=== PATIENT | female | born 1945 | race Caucasian/White ===

== ENCOUNTER 2024-11-22 13:05 | Inpatient (IN) | payer MEDICARE, SELFPAY ==
[2024-11-22] VITALS (8 sets, daily range): BP systolic 100–127; BP diastolic 46–77; PULSE 67–83; RESP 16–20; TEMP 36.4–37.2; O2SAT 84–98; BMI 17.6
--- NOTE | ~2024-11-22 | CT_ITS ---
CLINICAL HISTORY: hypoxia CT chest without contrast Comparison: Chest x-ray from 11/22/2024. Findings: Moderate emphysematous changes and mild scarring redemonstrated. Secretions noted in the imaged airways including right mainstem bronchus. Mild opacities including anterior segment of the right upper lobe may reflect mild pneumonitis (image 304 of series 5). No lobar consolidation. No pneumothorax . Trace right pleural fluid. Mild-moderate cardiomegaly. Vascular calcifications include aorta, its branches, and coronary arteries. Nonenlarged mediastinal lymphadenopathy in this noncontrast study. Mild vertebral height losses appear old chronic and accentuated by Schmorl's nodes. Mild rib deformities appear old chronic. Degenerative changes include the imaged shoulders. Cholelithiasis in the severe stool burden are partially imaged in the upper abdomen. Streak artifacts are multifocal. IMPRESSION: 1. Mild ground-glass concerning for pneumonitis, including right upper lobe. Recommend attention on follow-up to ensure resolution. 2. Emphysematous changes of the both lungs. 3. Cholelithiasis. This document has been electronically signed by: Kevin Francisco MD on 11/22/2024 20:11:33
--- NOTE | ~2024-11-22 | XR_ITS ---
EXAMINATION: XR CHEST CLINICAL INFORMATION: shortness of breath COMPARISON: None available. TECHNIQUE: Frontal view of the chest was obtained. FINDINGS: Hyperinflated lungs. Pulmonary reticular pattern. Linear opacities in the lower hemithoraces. No pneumothorax. Blunting of the calcified angles bilaterally. Cardiomediastinal silhouette demonstrates calcified plaque aorta arch. Multilevel thoracic and upper lumbar spondylosis. XR/XR chest 1V IMPRESSION: Concerning acute on chronic airspace disease with questionable pleural thickening versus small pleural effusions. Electronically signed by: Baldemar Hernandez MD 11/22/2024 02:28 PM EST RP
--- NOTE | 2024-11-22 13:08 | ECG_ITS ---
Test Reason : SOB Blood Pressure : */* mmHG Vent. Rate : 79 BPM Atrial Rate : 79 BPM P-R Int : 126 ms QRS Dur : 116 ms QT Int : 394 ms P-R-T Axes : 28 260 19 degrees QTcB Int : 451 ms Normal sinus rhythm Left bundle branch block Abnormal ECG When compared with ECG of No significant changes seen Referred By: Generic ED Physician Electronically Signed By: Yuri Ayon
--- NOTE | 2024-11-22 13:31 | ED.SOB ---
HPI - SOB/Dyspnea General Chief Complaint: Dyspnea Stated Complaint: Diff breathing Time Seen by Provider: 11/22/24 13:46 History of Present Illness ED Provider: Mer[facility] DIXON Narrative: The patient is a 79-year-old female with a history of COPD who has had worsening shortness of breath over the last 3 or 4 days. No fever. She has been producing white sputum. Her daughter has been more and more concerned about her respiratory symptoms and brought her to the emergency room today. At triage her oxygen saturation was 80 the patient is not on home oxygen. The patient has a left [id number] amputation. She denies any swelling of the right lower leg different from her usual. Related Data Home Medications ?Medication ?Instructions ?Recorded ?Confirmed atorvastatin 40 mg tablet 40 mg PO DAILY 11/22/24 11/22/24 quetiapine 50 mg tablet 50 mg PO BEDTIME 11/22/24 Allergies Allergy/AdvReac Type Severity Reaction Status Date / Time No Known Allergies Allergy Verified 11/22/24 13:39 Review of Systems Review of Systems: Yes all other systems are reviewed and are negative [facility] Past Medical History Medical History (Updated 11/22/24 @ 17:15 by Jerry Gross MD) COPD (chronic obstructive pulmonary disease) Social History Social History Smoked in Last 30 Days: No Use of substances other than those prescribed or required for medical reasons: No Advance Directives: Yes Advance Directives Information Provided: No Advance Directives on File: No Physical Exam Vital Signs: Vital Signs: Last Vital Signs Temp 98.0 F 11/22/24 13:31 Pulse 68 11/22/24 15:58 Resp 18 11/22/24 15:58 BP 108/46 L 11/22/24 15:58 Pulse Ox 92 11/22/24 15:58 O2 Del Method Oxymask 11/22/24 15:58 O2 Flow Rate 4 11/22/24 15:58 BMI result Body Mass Index 17.6 Const: Other: The patient is a very petite, frail looking 79-year-old. She weighs 42 kilos. She looks slightly short of breath and was coughing occasionally. HEENT: Other: Face is symmetrical. Mucous membranes moist. Eyes: Other: Pupils are round equal, conjunctivae clear Neck: Other: No JVD Resp: Other: Inspiratory and expiratory wheezes bilaterally with a prolonged expiratory phase. Mild increased work of breathing Cardio: Rate: regular rate Rhythm: regular rhythm Heart sounds: S1 normal heart sound present and S2 normal heart sound present GI: Other: Abdomen is soft and nontender Skin: Other: Skin is dry and unremarkable Neuro: Other: The patient is awake and alert with a normal mental status. Cranial nerves are grossly intact. She moves her extremities appropriately Extrem: Other: The patient has a very proximal left [id number] amputation. The right leg has some mild thickness of the lower leg but the patient says this is baseline. No pitting edema. No tenderness Course Course Course Narrative: This is a Rapid Medical Examination (RME) performed by Rama Adan PA-C in triage. Full HPI, ROS, assessment and treatment plan per primary provider in the Main ED. 79 yo female hx of asthma/ copd (not dependent on home O2), NM (30 yrs ago) here w/ wheezing and SOB x2-3 days. VNA noted crackles to lungs, advise to come to ED. assoc fatigue and cough w/ white sputum, states this is chronic. denies fever, chills, myalgias, chest pain, NV. Plan: labs, trop, ekg, cxr, vbg Medications Administered Discontinued Medications Generic Name Dose Route Start Last Admin Trade Name Freq PRN Reason Stop Dose Admin Albuterol Sulfate 5 mg/ 0 mg 11/22/24 14:05 11/22/24 14:07 Albuterol/Ipratropium 3 ml INHALE 11/22/24 14:06 1 each ONCE ONE Administration Methylprednisolone Sodium Succinate 60 mg 11/22/24 14:27 11/22/24 14:36 Methylprednisolone Sod Succ 125 Mg/2 Ml Vial IVPUSH 11/22/24 14:28 60 mg ONCE ONE Administration Medical Decision Making Medical Decision Making [facility] Narrative: The patient is a 79-year-old woman with a history of COPD who presents with has a worsening shortness of breath, cough, and wheezing. I think she is likely having a COPD exacerbation. She was treated with IV steroids and updrafts. She was also given IV azithromycin. Her chest x-ray shows no acute infiltrate. Other labs are unremarkable. She has an oxygen requirement today. She required 4 L nasal cannula for an oxygen saturation of 90%. She is not normally on oxygen. She will be admitted further care. Lab Data 11/22/24 14:11 11/22/24 14:11 Labs: Lab Results 11/22/24 11/22/24 Range/Units 14:10 14:11 WBC 4.8 (4.8-10.8) X10*3/uL RBC 4.38 (4.20-5.50) X10*6/uL Hgb 13.9 (12.0-16.0) g/dl Hct 43.1 (37.0-47.0) % MCV 98.4 H (80.0-98.0) fL MCH 31.7 (27.0-33.0) pg MCHC 32.3 (31.0-35.0) g/dl RDW 14.1 (11.0-16.0) % Plt Count 203 (160-400) X10*3/uL MPV 10.5 (9.4-12.3) fL Immature Gran % (Auto) 0.4 (0.0-0.4) % Neut % (Auto) 74.5 H (45-73) % Lymph % (Auto) 11.1 L (20-40) % [place] % (Auto) 10.5 (2-11) % Eos % (Auto) 2.7 (0-4) % Baso % (Auto) 0.8 (0-2) % Lymph # (Auto) 0.5 L (1.2-4.9) X10*3/uL [place] # (Auto) 0.5 (0.1-1.2) X10*3/uL Eos # (Auto) 0.1 (0.0-0.4) X10*3/uL Baso # (Auto) 0.0 (0.0-0.2) X10*3/uL Abs Immat Gran (auto) 0.02 (0.00-0.03) X10*3/uL Absolute Neuts (auto) 3.5 (2.0-8.3) x10*3/uL Absolute Nucleated RBC 0.000 (0.0-0.012) X10*3/uL Nucleated RBC % (auto) 0.0 (0.0-0.2) /100WBC VBG pH 7.39 (7.32-7.43) VBG pCO2 53 mmHg VBG pO2 33 mmHg VBG HCO3 33 H (22-26) mmol/L VBG O2 Saturation 45.0 % VBG Base Excess 6.7 mmol/L Sodium 143 (135-145) mmol/L Potassium 3.9 (3.3-5.1) mmol/L Chloride 103 (96-108) mmol/L Carbon Dioxide 29 (22-29) mmol/L Anion Gap 15 (12-20) BUN 18 H (9-16) mg/dL Creatinine 0.72 (0.5-1.4) mg/dL Estim Creat Clear Calc 43.5 Estimated GFR > 60 Random Glucose 69 (60-115) mg/dL Calcium 8.7 (8.4-10.2) mg/dL Magnesium 2.0 (1.6-2.6) mg/dL Total Bilirubin 0.4 (0.0-1.0) mg/dL AST 34 H (5-31) U/L ALT 20 (0-31) U/L Alkaline Phosphatase 73 (39-117) U/L Troponin I High Sens 5.5 (<3.5-17.0) ng/L C-Reactive Protein 1.70 H (< or = 0.50) mg/dL B-Natriuretic Peptide 755 H (<100) pg/mL Total Protein 7.4 (6.5-8.0) g/dL Albumin 3.7 (3.5-5.0) g/dL Influenza Type A (PCR) NEGATIVE (Negative) Influenza Type B (PCR) NEGATIVE (Negative) RSV RNA Qual (PCR) NEGATIVE (Negative) SARS-CoV-2 RNA (RT-PCR) NEGATIVE (Negative) Discharge Plan Discharge Clinical Impression: Acute exacerbation of chronic obstructive pulmonary disease Patient Disposition: Admitted As Inpatient
--- NOTE | 2024-11-22 13:59 | PC.NURSE ---
SAO2 79% on 3 ltr NC; pt placed on 5 LT oxymask..now 93%; pt speaking full sentences; reports recent coughing/fatigue/nausea/LS dim
[2024-11-22] MEDS: Albuterol Sulfate 5 MG, Albuterol/Iprat 2.5/0.5MG 3 ML 3 ML INHALE (14:07)
[2024-11-22 14:16] LABS: MANUAL DIFF FLAG NO
[2024-11-22 14:17] LABS: Basophils Percent Auto 0.8 % (0-2); Eosinophils Absolute Auto 0.1 X10*3/uL (0.0-0.4); Eosinophils Percent Auto 2.7 % (0-4); Hematocrit 43.1 % (37.0-47.0); Hemoglobin 13.9 g/dl (12.0-16.0); Imm Gran Abs Auto 0.02 X10*3/uL (0.00-0.03); Imm Gran Pct Auto 0.4 % (0.0-0.4); Lymphocytes Absolute Auto 0.5 X10*3/uL (1.2-4.9); Lymphocytes Percent Auto 11.1 % (20-40); Mean Corpuscular HGB Conc 32.3 g/dl (31.0-35.0); Mean Corpuscular Hemoglobin 31.7 pg (27.0-33.0); Mean Corpuscular Volume 98.4 fL (80.0-98.0); Mean Platelet Volume 10.5 fL (9.4-12.3); Monocytes Absolute Auto 0.5 X10*3/uL (0.1-1.2); Monocytes Percent Auto 10.5 % (2-11); Neutrophils Absolute Auto 3.5 x10*3/uL (2.0-8.3); Neutrophils Percent Auto 74.5 % (45-73); Platelet Count 203 X10*3/uL (160-400); Red Blood Count 4.38 X10*6/uL (4.20-5.50); Red Cell Distribution Width 14.1 % (11.0-16.0); White Blood Count 4.8 X10*3/uL (4.8-10.8)
[2024-11-22 14:22] LABS: VBG Base Excess 6.7 mmol/L; VBG HCO3 33 mmol/L (22-26); VBG pCO2 53 mmHg; VBG pH 7.39 (7.32-7.43); VBG pO2 33 mmHg
[2024-11-22 14:23] LABS: Venous Blood Gas Refer to POC result
[2024-11-22 14:33] LABS: Alanine Aminotransferase 20 U/L (0-31); Albumin Level 3.7 g/dL (3.5-5.0); Alkaline Phosphatase 73 U/L (39-117); Anion Gap 15 (12-20); Aspartate Amino Transferase 34 U/L (5-31); Bilirubin Total 0.4 mg/dL (0.0-1.0); Blood Urea Nitrogen 18 mg/dL (9-16); Calcium 8.7 mg/dL (8.4-10.2); Carbon Dioxide 29 mmol/L (22-29); Chloride 103 mmol/L (96-108); Creatinine Clr Calc Pharmacy 43.5; Estimated Glomerular Filt Rate > 60; Glucose Random 69 mg/dL (60-115); Potassium 3.9 mmol/L (3.3-5.1); Sodium 143 mmol/L (135-145); Total Protein 7.4 g/dL (6.5-8.0)
[2024-11-22] MEDS: methylPREDNISolone Sod Succ 125 MG/2 ML VIAL 60 MG IVPUSH (14:36)
[2024-11-22 14:38] LABS: B Type Natriuretic Peptide 755 pg/mL (<100); Troponin-I High Sensitivity 5.5 ng/L (<3.5-17.0)
[2024-11-22 15:01] LABS: Influenza A PCR NEGATIVE (Negative); Influenza B PCR NEGATIVE (Negative); Resp Syncy Virus RNA Qual PCR NEGATIVE (Negative); SARS COV2 PCR INHOUSE NEGATIVE (Negative)
--- OUTSIDE RECORDS SUMMARY | 2024-11-22 15:30 | XMS_ITS | Clinical Summary ---
Author Organization [facility] Address [address] [place] [address] Care Team Providers Care Safety Deposit Boxes Custodian Name Role Phone Scarlet Hamlin Primary Care Provider Surgical History Surgery Date Site/Laterality Comments COLONOSCOPY 08/20 PROCEDURE: ME COLONOSCOPY STOMA DX INCLUDING COLLJ SPEC SPX FLEXIBLE SIGMOIDOSCOPY PROCEDURE: ME SIGMOIDOSCOPY FLX DX W/COLLJ SPEC BR/WA IF PFRMD OTHER SURGICAL HISTORY 05/23 PROCEDURE: MAMMOGRAM Medical History Medical History Date Comments Irritable bowel syndrome 09/18/2005 DX:Irri table bowel syndrome Acute myocardial infarction of other inferior wall, episode of care unspecified 09/18/2005 DX:Acute myocardial infarcti on of other inferior wall, episode of care unspecified; COMMENT: 1990 Chronic ischemic heart disea se, unspecified 09/18/2005 DX:Chronic ischemic heart di sease, unspecified Senile osteoporosis 09/18/2005 DX:Senile os teoporosis Pure hypercholesterolemia 09/18/2005 DX:Pur e hypercholesterolemia Other and unspecified noninf ectious gastroenteritis and colitis(558.9) 09/19/2005 DX:Other and unspec ified noninfectious gastroenteritis and colitis(558.9) Diverticulosis of colon (wit hout mention of hemorrhage) 08/28/2006 DX:Diverticulosis of colon ( without mention of hemorrhage); COMMENT: identified at colonoscopy 09.08.02. No colon cancer screening necessary until 2011. Acute duodenal ulcer without mention of hemorrhage, perforation, or obstruction 08/28/2006 DX:Acute duodenal ulcer with out mention of hemorrhage, perforation, or obstruction; COMMENT: upper GI endoscopy 05.01.05. H. pylori infection was treated. Family History Medical History Relation Name Comments Heart attack Father Other: lung problems Mother Relation Name Status Comments Father Mother Social History Tobacco Use Types Packs/Day Years Used Date Smoking Tobacco: Every Day Alcohol Use Standard Drinks/Week Comments No 0 (1 standard drink = 0.6 oz pur e alcohol) Sex and Gender Information Value Date Recorded Sex Assigned at Not on file Gender Identity Not on file Sexual Orientation Not on file Obstetrics History Plan of Treatment Health Maintenance Due Date Last Done Comments Zoster Vaccines (1 of 2) 1997 DTaP,Tdap,and Td Vaccines (2 - Td or Tdap) 10/19/2001 10/19/1991 Pneumococcal Vaccine: 65+ Ye ars (2 of 2 - PCV) 2012 08/10/2006 RSV Immunization Patients 60 + Years Old (1 - 1-dose 75+ series) 2022 COVID-19 Vaccine (1 - 2023-2 5 season) 2024 Influenza Vaccine (#1) 2024 HIB Vaccines Aged Out No longer eligi ble based on patient's age to complete this topic HPV Vaccines Aged Out No longer eligi ble based on patient's age to complete this topic Hepatitis A Vaccines Aged Out No long er eligible based on patient's age to complete this topic Hepatitis B Vaccines Aged Out No long er eligible based on patient's age to complete this topic IPV Vaccines Aged Out No longer eligi ble based on patient's age to complete this topic MMR Vaccines Aged Out No longer eligi ble based on patient's age to complete this topic Meningococcal ACWY Vaccine Aged Out N o longer eligible based on patient's age to complete this topic RSV Immunization Patients Un laura 20 months Aged Out No longer eligible b ased on patient's age to complete this topic Varicella Vaccines Aged Out No longer eligible based on patient's age to complete this topic Care Teams Safety Deposit Boxes Custodian Relationship Specialty Start Date End Date Scarlet Hamlin DO [address] [place] [address] [place] [address] PCP - General 07/23/00
--- OUTSIDE RECORDS SUMMARY | 2024-11-22 15:30 | XMS_ITS | Continuity of Care Document ---
Author Organization [facility] Address [address] [place] [address]- Care Team Providers Care Forest Fire Lookout Name Role Phone Jenny PYLE, Shonda Byrd Primary Care Physician Encounter [facility] Date(s): 10/21/24 - 10/28/24 [facility] [address] [place], [place] [address] Encounter Diagnosis Calcinosis cutis(Discharge Diagnosis) - 10/21/24 Attending Physician: Maude Marcos NP Admitting Physician: Maude Marcos NP Referring Physician: Shonda Alvarado NP Encounter Type: Office Visit Allergies, Adverse Reactions, Alerts No Known Allergies Immunizations Given and Recorded Vaccine Date Status Refusal Reason influenza virus vaccine, inactivated 1, 2 09/26/24 Given influenza virus vaccine, inactivated 3 08/26/23 Gi wai influenza virus vaccine, inactivated 4 10/10/21 Gi wai influenza virus vaccine, inactivated 5 09/03/20 Gi wai influenza virus vaccine, inactivated 09/27/19 Give n influenza virus vaccine, inactivated 07/26/17 Tesfaye rded influenza virus vaccine, inactivated 08/22/16 Tesfaye rded pneumococcal 20-valent conjugate vaccine 02/23/23 Given Influenza Virus Vaccine (oldterm) 6 08/06/22 Recor ded SARS-CoV-2 mRNA ([id number]-nmqia) vax 7 08/06/22 Recorded SARS-CoV-2 (COVID-19) mRNA BNT-162b2 vac 8 10/10/21 Given SARS-CoV-2 (COVID-19) Ad26 vaccine 03/21/21 Record ed pneumococcal 13-valent vaccine 9 09/03/20 Given pneumococcal 23-valent vaccine 08/10/06 Recorded Pneumococcal Vaccine (oldterm) 08/08/06 Given tetanus-diphtheria toxoids (Td) 10/19/91 Recorded 1Early/Late Reason: Early/Late Reason: Other : Wrong date 2Result Comment: [id number] 3Result Comment: [id number] Checklist completed 4Result Comment: [facility]: 26487-208-00 5Result Comment: [id number] 6Result Comment: [facility] Pharmacy 7Result Comment: [facility] Pharmacy 8Result Comment: [facility]: [id number] 9Result Comment: [id number] Medications aspirin 81 mg oral delayed release tablet 81 mg, By Mouth, Daily, # 30 tablet, Refills 11, Tot. Refills 11, Maintenance, 10/16/20 5:46:00 AM EST, Print Requisition, Partial fill upon patient request if the prescription is for a schedule II opioid drug. Start Date: 10/16/20 Stop Date: 10/11/21 Status: Ordered Quantity: 30.0 Unit: tablet Repeat number: 12 atorvastatin 40 mg oral tablet 1 tablet, By Mouth, Daily, # 90 tablet, 1 Refills, Maintenance, 09/13/24 9:23:00 AM EST, [facility] STORE [id number], 156, cm, 08/17/24 11:06:00 EDT, Height, 43.4, kg, 08/02/24 16:11:00 EDT, Dry Weight Start Date: 09/13/24 Status: Ordered Quantity: 90.0 Unit: tablet Repeat number: 1 Centrum Adults By Mouth, Daily, 0 Refills, Maintenance, 11/29/20 3:57:00 PM EST, Partial fill upon patient request if the prescription is for a schedule II opioid drug. Start Date: 11/29/20 Status: Ordered Repeat number: 1 D3 with Calcium By Mouth, Daily, 0 Refills, Maintenance, 08/25/20 8:08:00 AM EST Start Date: 08/25/20 Status: Ordered Repeat number: 1 Dakins Quarter Strength 0.125% topical solution See Instructions, moistened Dakins gauze wet to dry to left buttock ulcer daily, # 425 mL, 5 Refills, Maintenance, 09/01/24 4:41:00 PM EST, [facility]/pharmacy #[id number], Partial fill upon patient request if the prescription is for a schedule II opioid drug., moistened Dakins gauze wet to dry to left buttock ulcer daily, 156, cm, 08/17/24 11:06:00 EDT, Height, 43.4, kg, 08/02/24 16:11:00 EDT, Dry Weight Start Date: 09/01/24 Status: Ordered Quantity: 425.0 Unit: mL Repeat number: 6 Indication: Calcinosis cutis Melatonin Daily at bedtime, 0 Refills, Maintenance, 08/25/20 8:08:00 AM EST Start Date: 08/25/20 Status: Ordered Repeat number: 1 mupirocin 2% topical ointment 1 application, Topically, 2 times a day, for 14 days, apply to affected skin, # 30 Gm, 0 Refills, Acute 11/10/24 8:35:00 PM EST, 10/27/24 8:35:00 PM EST, Ointment, [facility]/pharmacy #[id number], Partial fill upon patient request if the prescription is for a schedule II opioid drug., 1 application Topically 2 times a day,x14 days,Instr:apply to affected skin, 156, cm, 10/21/24 14:17:00 EST, Height, 43.4, kg, 08/02/24 16:11:00 EDT, Dry Weight Start Date: 10/27/24 Stop Date: 11/10/24 Status: Ordered Quantity: 30.0 Unit: g Repeat number: 1 QUEtiapine 50 mg oral tablet 1 tablet, By Mouth, Daily at bedtime, # 90 tablet, 1 Refills, Maintenance, 09/26/24 3:11:00 PM EST, [facility]/pharmacy #[id number], 156, cm, 09/26/24 14:35:00 EST, Height, 43.4, kg, 08/02/24 16:11:00 EDT, Dry Weight Start Date: 09/26/24 Status: Ordered Quantity: 90.0 Unit: tablet Repeat number: 2 Ventolin HFA 108 mcg/inh inhalation aerosol with adapter 2 puffs, Inhalation, Every 6 hours, PRN NEEDED FOR WHEEZING/SHORTNESS OF BREATH, # 18 each, 0 Refills, Maintenance, 11/26/23 4:00:00 PM EST, [id number], 156, cm, 08/26/23 11:49:00 EST, Height Start Date: 11/26/23 Status: Ordered Quantity: 18.0 Unit: each Repeat number: 1 Problem List Condition Confirmation Course Effective Dates Status Health Status Informant Calcinosis cutis Confirmed Active COPD (chronic obstructive pulmonary disease) Confirmed Active Coronary artery disease Confirmed Active Ex-cigarette smoker Confirmed Active Status post above knee amputation of left lower extremity Confirmed Active History of acute myocardial infarction age 45;probably anterior wall Confirmed Active Hypercholesteremia Confirmed Active Major depression in full remission Confirmed Active Microcytic anemia Confirmed Active Mild aortic stenosis Confirmed Active Left arm pain Confirmed Active Paroxysmal atrial fibrillation- single episode post-op Confirmed Active Peripheral arterial disease Confirmed Active Underweight Confirmed Active Diagnosis Diagnosis Type Effective Dates Health Status Clinical Service Informant Calcinosis cutis Discharge Diagnosis 10/21/24 Vital Signs Most recent to oldest [Reference Range]: 1 Height 156 cm (10/21/24 2:17 PM) Weight 42.27 kg (10/21/24 2:17 PM) Pulse Rate [55-90 bpm] 80 bpm (10/21/24 2:17 PM) Body Mass Index [18.5-24.99 kg/m2] 17.37 kg/m2 *L* (10/21/24 2:17 PM) Blood Pressure [90-138/55-84 mm Hg] 122/ 68mm Hg (10/21/24 2:17 PM) Mode of Delivery (Oxygen) Room air (10/21/24 2:17 PM) Blood pressure sites Arm, left (10/21/24 2:17 PM) Weight Obtained Via Patient/family state d (10/21/24 2:17 PM) Social History Social History Type Response Smoking Status Former smoker, quit more than 30 days ago; Type: Cigarettes; Tobacco use times per day: 50-year, 1 pack/day history Quit 2008; Number of years: 50; Total pack years: 50; Started at age: 14; Stopped at age: 64; entered on: 10/10/21 Sex Sex Representation Female (finding) Note * Stefano Pereira: PERFORM Event Display: Patient Education/Instruction Authored Date: [id number] Ambulatory [place] [address] Name: JULIAN BONDS : 1945?? Visit: 10/21/2024 14:00?? Ambulatory Visit Instructions ?? Your Care Team Primary Care Provider Jenny PYLE, Shonda Byrd? This Visit Provider Tamiko Mckinley NP Vitals Signs Pulse Rate: 80 bpm Height: 156 cm Systolic Blood Pressure: 122 mm Hg Weight: 42.27 kg Diastolic Blood Pressure: 68 mm Hg Body Mass Index:??17.37 kg/m2??Low ?? Body surface area: 1.35 What to do next Scheduled Follow-Up Appointments Thursday 3:30 PM EST ?? With: Isidoro PYLE, Madison Martin Where: [address] [facility] [place] [address]- Status: Pending Future Orders Fecal Occult Blood Immunochemical - Routine, Once, 03/18/24 15:09:00 EDT, Order for Today, [facility],Stool?? Medications The list below reflects the information in our records and provided by you today along with any changes made during this visit. Please continue your medications until treatment is completed or stopped by your provider. If this is different from the information you have or there are other questions,please contact the prescribing provider. What How Much When Why Instructions Unchanged Albuterol (Ventolin HFA 108 mcg/ inh inhalation aerosol with adapter) 2 puff(s) Inhalation Every 6 hours as needed for NEEDED FOR WHEEZING/SHORTNESS OF BREATH Unchanged Aspirin (aspirin 81 mg oral delayed release tablet) 81 Milligram Oral Daily Duration: 30 Days Unchanged Atorvastatin (atorvastatin 40 mg oral tablet) 1 tab(s) Oral Daily Unchanged Calcium And Vitamin D Combination (D3 with Calcium) Oral Daily Unchanged Melatonin Daily at Bedtime Unchanged Multivitamin With Minerals (Centrum Adults) Oral Daily Unchanged Quetiapine (QUEtiapine 50 mg oral tablet) 1 tab(s) Oral Daily at Bedtime Unchanged Sodium Hypochlorite Topical (Dakins Quarter Strength 0.125% topical solution) See instructions Calcinosis cutis moistened Dakins gauze wet to dry to left buttock ulcer daily ?? Medications and Immunizations Administered Medications Given During Visit No medications given during this visit.?? Allergies (NKA means No Known Allergies) NKA Common Emergency Awareness Tips IS IT A STROKE? Act FAST and Check for these signs: FACE Does the face look uneven? ARM Does one arm drift down? SPEECH Does their speech sound strange? TIME Call 9-1-1 at any sign of stroke ?? Heart Attack Signs Chest discomfort: Most heart attacks involve discomfort in the center of the chest and lasts more than a few minutes, or goes away and comes back. It can feel like uncomfortable pressure, squeezing, fullness or pain. Discomfort in upper body: Symptoms can include pain or discomfort in one or both arms, back, neck, jaw or stomach. Shortness of breath: With or without discomfort. Other signs: Breaking out in a cold sweat, nausea, or lightheaded. Remember, MINUTES DO MATTER. If you experience any of these heart attack warning signs, call to get immediate medical attention! ?? Smoking can increase your chances of developing chronic health problems and can cause harmful effects to other family members in your house. If you smoke, you are strongly encouraged to quit. Please call [employer] at [phone] or [phone] ([phone]) or log in to [email or web address] for referrals to smoking cessation programs. ?? The National Suicide Prevention Hotline is available 11/05 if you or someone you know needs to find a reason to keep living. By calling 4-514-386-Soocial (2868) you'll be connected to a skilled, trained counselor at a crisis center in your area. [facility] [employer] Portal You can view and manage your care through the patient portal or by using a health care idalia of your choosing. [employer] is a website that allows you to securely view your medical information including your hospital discharge summary, office visit summaries, medications and follow-up visits. You can also request appointments, renew medications, and request access to your medical information using a health care idalia of your choosing, or just ask a question. You can enroll at [email or web address] or register during your next office visit. [facility], in keeping with [facility] guidance, no longer requires face masks for staff, patientsor visitors in most situations. Similiar to time spent indoors at other locations, there is the chance that you were exposed to repiratory viruses during your time with us (such as flu or COVID-19). If you develop symptoms concerning for a viral respiratory infection, please seek testing (and treatment if indicated) from your medical provider or home test kit. ?? Disclaimer: The information provided is of a general nature and is intended to be used in conjunction with the recommendations and advice of your health care practitioner. Every effort has been made to ensure that the information provided is accurate and complete at the time it is provided to you however, as your needs change, or, as new information becomes available, different or additional instructions may be required. ?? If you have questions, please consult with your primary care provider or pharmacist, as appropriate. This information is not intended to serve as substitution for assessment and evaluation by a qualified health care provider. If you do not have a primary care provider, you may find a [facility] provider by calling [facility] at [phone]. Patient Care team information Care Team Personnel Name: Giselle Altamirano RN Position: [facility] SN RN Member Role: Primary Care Nurse Name: Christal Bull RN Position: [facility] HBO Wound Member Role: Primary Care Nurse Name: Neris Delgado RN Position: [facility] RN Member Role: Primary Care Nurse Name: Shonda Alvarado NP Position: [facility] PCO Associate Professional Member Role: PCP Address: [address] [place] [id number] Telecom: Name: Odilia Causey RN Position: [facility] RN Member Role: Primary Care Nurse Name: Hien Teran RN Position: [facility] AMB Nurse Member Role: Primary Care Nurse Name: Marcial Arredondo RN Position: [facility] SN RN Member Role: Primary Care Nurse Name: Joy Mir RN Position: [facility] AMB Nurse Member Role: Primary Care Nurse Name: Yasmeen Vilchis RN Position: [facility] Onco RN Member Role: Primary Care Nurse Name: Nathalie Mackey RN Position: [facility] RN Member Role: Primary Care Nurse Name: Heather Sharif RN Position: [facility] RONI RN W/OE and Tasks Member Role: Primary Care Nurse Name: Yumiko Avendaño RN Position: [facility] RN Member Role: Primary Care Nurse Name: Greta Macario RN Position: [facility] Hospital [employer] Juice Member Role: Primary Care Nurse Name: Nikia Pedroza RN Position: [facility] AMB Nurse Member Role: Primary Care Nurse Name: Radha Campbell RN Position: S RN Member Role: Primary Care Nurse Name: Rodolfo Duffy Position: S RN Member Role: Primary Care Nurse Care Team Related Persons Name: JEFF RUDD Name: CULLEN ESTEVEZ Insurance Providers Guarantor name: JULIAN BONDS Prepared Response Information #: 3 Payer: HMO BLUE IN NETWORK Member Number: [id number] Policy Number: NA Group Number: NA Health Plan Information #: 1 Payer: MEDICARE PART B OUTPT Member Number: [id number] Policy Number: NA Group Number: NA Health Plan Information #: 2 Payer: MEDEX Member Number: [id number] Policy Number: NA Group Number: NA
--- OUTSIDE RECORDS SUMMARY | 2024-11-22 15:30 | XMS_ITS | Continuity of Care Document ---
Author Organization [facility] Address [address] [address] Phone Care Team Providers Care Seedling Sorter Name Role Phone Garrick Ferrer DO Unavailable Unavailable Advance Directives Directive Yes / No Effective Date File Name No Information Encounters Encounter Description Practice Location Reason(s) For Visit Diagnoses Date Provider Providers Copied on Encounter [facility], [address], [id number], [place] tel:[phone] [place] No Information 9 Nabil Mccauley. [address] [place] [address], [id number] , [place]. tel:[phone] Family History Family Member Type Diagnosis Age At Onset No Information Payers Payer name Insurance type Covered constitution party ID Authoriza tion(s) No Information Social History Type Description Quantity Date Captured Comments Sex Female Smoking Status No Information Chief Complaint And Reason For Visit No Information Reason For Referral Reason For Referral No Information History Of Present Illness Encounter Date Complaint History Of Prese nt Illness No Information Functional Status Date Functional Assessmen t No Information Instructions Date Instruction Additional Infor mation No Information Assessments Type Assessment Date No Information Patient Care Teams Name Effective Dates (start - stop) Status Members No Information
--- NOTE | 2024-11-22 17:09 | P.HPHOSP_ITS ---
History of Present Illness Date of Service: 11/22/24 Chief Complaint: sob 79F PMH COPD, pvd, cad, hld, mood disorder, raynauds, s/p left AKA presented with sob. Patient reports about 2 days of sob, weakness, difficulty with mild exertion. denies fever, chills, chest pain or sick contacts. noted to be wheezing and crackly so brought to ED. in ED was hypoxic to 79% on room air required 4L to maintain 90%, viral swab negative, bnp elevate to 700, cxr with acute on chronic airspace disease. Review of Systems 2 Review of Systems: Yes all other systems are reviewed and are negative [facility] Medical History (Updated 11/22/24 @ 17:15 by Jerry Gross MD) COPD (chronic obstructive pulmonary disease) Social History Smoked in Last 30 Days: No Use of substances other than those prescribed or required for medical reasons: No Advance Directives: Yes Advance Directives Information Provided: No Advance Directives on File: No Meds Allergies Allergy/AdvReac Type Severity Reaction Status Date / Time No Known Allergies Allergy Verified 11/22/24 13:39 Active Medications: Current Medications Acetaminophen (Acetaminophen 325 Mg Tablet) 650 mg PO Q6H PRN PRN Reason: Pain, Mild 1-3,fever,headache Albuterol/Ipratropium (Albuterol/Iprat 2.5/0.5mg 3 Ml Ampul.Neb) 3 ml INHALE RQ4H WHILE AWAKE QUINN Calcium Carbonate (Calcium Carbonate 750 Mg Tab.Chew) 750 mg PO Q4H PRN PRN Reason: Heartburn Enoxaparin Sodium (Enoxaparin Sodium 40 Mg/0.4 Ml Syringe) 40 mg SUBCUT Q24H QUINN Furosemide (Furosemide 20 Mg/2 Ml Vial) 20 mg IVPUSH ONCE ONE; Protocol Stop: 11/22/24 17:07 Azithromycin 500 mg/ Sodium (Chloride) 250 mls @ 125 mls/hr IV ONCE ONE Stop: 11/22/24 18:43 Magnesium Hydroxide (Milk Of Magnesia 30 Ml Oral.Susp) 30 ml PO DAILY PRN PRN Reason: Constipation Melatonin (Melatonin 3 Mg Tablet) 6 mg PO BEDTIME PRN PRN Reason: Insomnia Methylprednisolone Sodium Succinate (Methylprednisolone Sod Succ 40 Mg/Ml Vial) 40 mg IVPUSH Q12H QUINN Sodium Chloride (0.9 % Sodium Chloride Flush 3 Ml Syringe) 3 ml IVFLUSH QSHIFT [facility] Home Medications ?Medication ?Instructions ?Recorded ?Confirmed ?Last Taken ?Type atorvastatin 40 mg tablet 40 mg PO DAILY 11/22/24 11/22/24 Unknown History quetiapine 50 mg tablet 50 mg PO BEDTIME 11/22/24 Unknown History Physical Exam 2 Vital Signs and Narrative: Vital Signs: Last Vital Signs Temp 98.0 F 11/22/24 13:31 Pulse 68 11/22/24 15:58 Resp 18 11/22/24 15:58 BP 108/46 L 11/22/24 15:58 Pulse Ox 92 11/22/24 15:58 O2 Del Method Oxymask 11/22/24 15:58 O2 Flow Rate 4 11/22/24 15:58 BMI result Body Mass Index 17.6 General: AO X 3, no acute distress, frail appearing Resp: crackles at bases, diminished bilateral, no accessory muscles used CVS: S1,S2,RRR GI: soft, non tender, non distended Neuro: motor grossly intact, alert Psych: appropriate affect, appropriate insight left, AKA, no edema on right Results Labs 11/22/24 14:11 11/22/24 14:11 Labs: Laboratory Results - last 24 hr 11/22/24 11/22/24 14:10 14:11 MCV 98.4 H MCH 31.7 MCHC 32.3 RDW 14.1 Plt Count 203 MPV 10.5 Immature Gran % (Auto) 0.4 Neut % (Auto) 74.5 H Lymph % (Auto) 11.1 L [place] % (Auto) 10.5 Eos % (Auto) 2.7 Baso % (Auto) 0.8 Lymph # (Auto) 0.5 L [place] # (Auto) 0.5 Eos # (Auto) 0.1 Baso # (Auto) 0.0 Abs Immat Gran (auto) 0.02 Absolute Neuts (auto) 3.5 Absolute Nucleated RBC 0.000 Nucleated RBC % (auto) 0.0 VBG pH 7.39 VBG pCO2 53 VBG pO2 33 VBG HCO3 33 H VBG O2 Saturation 45.0 VBG Base Excess 6.7 Anion Gap 15 Estim Creat Clear Calc 43.5 Estimated GFR > 60 Random Glucose 69 Calcium 8.7 Magnesium 2.0 Total Bilirubin 0.4 AST 34 H ALT 20 Alkaline Phosphatase 73 Troponin I High Sens 5.5 C-Reactive Protein 1.70 H B-Natriuretic Peptide 755 H Total Protein 7.4 Albumin 3.7 Influenza Type A (PCR) NEGATIVE Influenza Type B (PCR) NEGATIVE RSV RNA Qual (PCR) NEGATIVE SARS-CoV-2 RNA (RT-PCR) NEGATIVE Imaging Radiologist's Impressions: Impressions Chest X-Ray 11/22/24 13:59 IMPRESSION: Concerning acute on chronic airspace disease with questionable pleural thickening versus small pleural effusions. Electronically signed by: Baldemar Hernandez MD 11/22/2024 02:28 PM EST RP Assessment and Plan (1) COPD (chronic obstructive pulmonary disease): Status: Acute Plan 79F PMH COPD, pvd, cad, hld, mood disorder, raynauds, s/p left AKA presented with sob Acute hypoxic respiratory failure secondary to COPD with acute decompensation and possible acute unspecified CHF IV steroids, DuoNebs, IV Lasix 1 dose, follow up echocardiogram and CT Wean oxygen as Moderate protein calorie malnourished Encourage p.o. intake Peripheral vascular disease, coronary artery disease Continue aspirin and statin DVT prophylaxis with lovenox DNR/DNI Patient with significant hypoxia therefore expected require at least 2 midnights inpatient Quality Stroke Does the patient have a stroke diagnosis?: No VTE Prior VTE?: No VTE Risk Level:: Medical - moderate - high VTE Device Contraindication: Treatment Not Indicated VTE Drug Contraindication: N/A - Med Ordered
[2024-11-22] MEDS: LORazepam 2 MG/ML VIAL 1 MG IVPUSH (18:01)
[2024-11-22] MEDS: Azithromycin 500 MG in 0.9 % Sodium Chloride 250 ML 125 MG IV (18:05)
--- NOTE | 2024-11-22 18:05 | PC.NURSE ---
Patient requesting for lasisk to be held until she goes upstairs
--- NOTE | 2024-11-22 18:17 | PHA.MEDREC ---
Addendum entered by Fredrick William RPh 11/22/24 18:44: Med rec was reviewed by MUKESH. Original Note: Pharmacy Consult ? Medication Reconciliation Pharmacy has completed the medication reconciliation. Spoke with patient and patients daughter at bedside' patient was able to confirm her medications with me. The daughter stated her mom gets a cream from [facility] but was not entirely sure the name of the cream since a visiting nurse comes and puts it on. The patient is receiving VNA services from [facility]. Both the [facility] and [facility] services are closed until the Am, will have morning team follow up to get the cream. The daughter states her mom last took the medications yesterday.
--- NOTE | 2024-11-22 19:32 | PC.NURSE ---
Took over care from KAYLIE Mejía, lasix not given due to pt being in MRI, per Clinical coordinator, attempted to give lasix before transport, was told by family lasix is to be given once she transferred to her room. report given prior to my shift.
[2024-11-22] MEDS: Albuterol/Iprat 2.5/0.5MG 3 ML AMPUL.NEB INHALE (20:05)
[2024-11-22] MEDS: QUEtiapine Fumarate 50 MG TABLET PO (21:06)
[2024-11-22] MEDS: Furosemide 20 MG/2 ML VIAL IVPUSH (21:06)
[2024-11-22] MEDS: Atorvastatin Calcium 40 MG TABLET PO (21:06)
[2024-11-22] MEDS: Melatonin 3 MG TABLET 6 MG PO (21:10)
[2024-11-22] MEDS: 0.9 % Sodium Chloride Flush 3 ML SYRINGE IVFLUSH (21:11)
[2024-11-23] VITALS (12 sets, daily range): BP systolic 89–133; BP diastolic 51–62; PULSE 61–90; RESP 16–20; TEMP 36.5–37.2; O2SAT 88–99; BMI 17.6
--- NOTE | 2024-11-23 07:00 | CA_ITS ---
Transthoracic Echocardiogram Patient (Last, First, Middle): Peyton Hodges E Gender: Female Date of : 1945 Age: 79 Procedure Date: 11/23/2024 Procedure Type: Transthoracic Echocardiogram Location: [facility] [place] Height: 154.94 cm Weight: 42.18 kg BSA: 1.36 m2 Heart Rate: bpm BP: 105 / 55 mmHg Dance Critic: ARCHANA Referring MD: Jerry Gross MD Symptoms: chf Study Quality: Fair Conclusions: - Normal left ventricular size, thickness, systolic function, and wall motion. The visually estimated ejection fraction is between 55-60%. - Elevated filling pressures. - Moderately increased right ventricular cavity size. There is moderately decreased right ventricular systolic function. - The right atrium is mildly dilated. - Moderate pulmonary hypertension is present. Findings Procedure Information The study quality is limited by the patients inability to tolerate the test. Left Ventricle Normal left ventricular size, thickness, systolic function, and wall motion. The visually estimated ejection fraction is between 55-60%. Abnormal diastolic function is noted. Spectral Doppler is indicative of an impaired relaxation filling pattern. Elevated filling pressures. Right Ventricle Moderately increased right ventricular cavity size. There is moderately decreased right ventricular systolic function. Atria The left atrium is normal in size. The right atrium is mildly dilated. Aortic Valve There is no aortic valve stenosis. There is no aortic valve regurgitation. Aortic valve appears to be trileaflet and has mild to moderate calcification. Mitral Valve The mitral valve appears normal. There is trace mitral valve regurgitation. There is no mitral valve stenosis. Pulmonic Valve The pulmonic valve is likely normal. Tricuspid Valve Normal tricuspid valve structure. There is mild tricuspid valve regurgitation. The right ventricular systolic pressure is 51 mmHg. Normal right atrial pressure. Moderate pulmonary hypertension is present. Great Vessels All visible segments of the aorta are normal in size. Venous The inferior vena cava is normal in size and collapses greater than 50% with inspiration. Pericardium/Pleural There is no evidence of pericardial effusion. Prior Study Comparison No prior study available for comparison. Measurements 2D Linear Measurements IVSd: 0.64 0.6-0.9/0.6-1.0 cm LVIDd: 4.29 3.9-5.3/4.2-5.9 cm LVIDd Index: 3.15 2.4-3.2/2.2-3.1 cm/m2 LVIDs: 3.21 2.0-3.6 cm LVPWd: 0.58 0.7-1.1 cm LA Diam: 3.10 2.7-3.8/3.0-4.0 cm LAIDs Index: 2.28 1.5-2.3 cm/m2 LV Mass: 92.05 67-162/88-224 g LV Mass Index: 67.69 43-95/49-115 g/m2 LVOT Diam: 1.90 3.0+(-)1.3 cm 2D Systolic Function EF 4C: 44.30 >55% Mitral Valve MV Pk E: 0.69 MV PK A: 1.03 MV Decel Time: 252.00 E/A: 0.70 E'Lateral: 4.13 E'Medial: 5.11 E/E' Med: 13.50 E/E' Lat: 16.70 PHT: 74.00 MVA PHT: 2.97 Decel [place]: 2.73 Aortic Valve AoV Pk Sadi: 1.48 AoV Mn Sadi: 0.99 AoV VTI: 0.28 AoV Pk Grad: 9.00 Aov Mn Grad: 5.00 CHASITY Cont.VTI: 1.00 LVOT LVOT Pk Sadi: 0.58 LVOT Mn Sadi: 0.39 LVOT VTI: 0.10 LVOT Pk Grad: 1.00 LVOT Mn Grad: 1.00 LVOT Diam: 1.90 LVOT Area: 2.84 Diastolic Function MV Pk E: 0.69 MV Pk A: 1.03 E/A: 0.70 E'Medial: 5.11 E/E' Med: 13.50 E' Laterial: 4.13 E/E' Lat: 16.70 Right Ventricle TAPSE (mm): 12.30 TVS' Sadi: 8.49 Tricuspid Valve TR Pk Sadi: 3.28 TR Pk Grad: 43.00 RA Press: 8.00 RVSP: 51.00 Great Vessels Aorta Sinus of Valsalva: 3.20 2.0-3.5 cm Ao Asc: 2.70 2.1-3.4 cm Pulmonary Valve PV Pk Sadi: 0.69 Peak PV Grad: 2.00 Updated in Other Vendor System with Status of Final Yuri Ayon MD electronically signed on 11/23/2024 6:56:25 PM with status of Final
[2024-11-23] MEDS: Albuterol/Iprat 2.5/0.5MG 3 ML AMPUL.NEB INHALE ×4 (07:51→19:27)
[2024-11-23 08:33] LABS: Adenovirus PCR Not Detected (Not Detect.); Bordetella parapertussis PCR Not Detected (Not Detect.); Bordetella pertussis PCR Not Detected (Not Detect.); Chlamydia pneumoniae PCR Not Detected (Not Detect.); Coronavirus 229E PCR Not Detected (Not Detect.); Coronavirus HKU1 PCR Not Detected (Not Detect.); Coronavirus NL63 PCR Not Detected (Not Detect.); Coronavirus OC43 PCR Not Detected (Not Detect.); Human metapneumovirus PCR Not Detected (Not Detect.); Influenza A PCR Not Detected (Not Detect.); Influenza B PCR Not Detected (Not Detect.); Mycoplasma pneumoniae PCR Not Detected (Not Detect.); Parainfluenza 1 PCR Not Detected (Not Detect.); Parainfluenza 2 PCR Not Detected (Not Detect.); Parainfluenza 3 PCR Not Detected (Not Detect.); Parainfluenza 4 PCR Not Detected (Not Detect.); RSV PCR Not Detected (Not Detect.); Rhino/Enterovirus PCR Not Detected (Not Detect.)
[2024-11-23 09:13] LABS: SARS-CoV-2 PCR Not Detected (Not Detect.)
--- NOTE | 2024-11-23 09:27 | MHC.CM.PN ---
Addendum entered by Vera Moreno RN 11/23/24 13:58: CM RECEIVED MESSAGE FROM [facility], PT IS ACTIVE W/SN. Addendum entered by Vera Moreno RN 11/23/24 13:40: CM RECEIVED COPY OF HCP FROM [facility], PT'S SON SHAWN [phone] IS PT'S HCA AND DTR JEFF RACHEL [phone] ALTERNATE. Original Note: IMM 11/23/24, EMR REVIEWED, PT W/COPD/CHF, CM MET W/PT, DTR WAS AT BEDSIDE HOWEVER PT ANSWERED MAJORITY OF QUESTIONS, PT REPORTS SHE LIVE IN [facility] APT AT DTRS HOME, IS INDEP W/ADLS, DOES USE A 4WHEELED WALKER AT HOME (NOT ROLLATOR) AND HAS A CLEANING LADY WHO COMES EVERY 2WKS FOR 2HRS, PT'S GOAL FOR DC IS HOME, WOULD BE OPEN TO [facility] IF NEEDED. PT VERIFIES PCP ON FILE IS CORRECT, HCP ON FILE AT [facility] AND CM HAS REQUESTED COPY.
[2024-11-23] MEDS: Aspirin Enteric Coated 81 MG TABLET.DR PO (10:40)
[2024-11-23] MEDS: methylPREDNISolone Sod Succ 40 MG/ML VIAL IVPUSH ×2 (10:41→21:28)
[2024-11-23] MEDS: 0.9 % Sodium Chloride Flush 3 ML SYRINGE IVFLUSH ×2 (10:41→21:29)
[2024-11-23] MEDS: Enoxaparin Sodium 40 MG/0.4 ML SYRINGE SUBCUT (10:42)
[2024-11-23 11:22] LABS: Hematocrit 39.3 % (37.0-47.0); Hemoglobin 12.8 g/dl (12.0-16.0); Mean Corpuscular HGB Conc 32.6 g/dl (31.0-35.0); Mean Corpuscular Hemoglobin 32.5 pg (27.0-33.0); Mean Corpuscular Volume 99.7 fL (80.0-98.0); Mean Platelet Volume 10.3 fL (9.4-12.3); Platelet Count 179 X10*3/uL (160-400); Red Blood Count 3.94 X10*6/uL (4.20-5.50); White Blood Count 5.5 X10*3/uL (4.8-10.8)
[2024-11-23 11:39] LABS: Anion Gap 11 (12-20); Blood Urea Nitrogen 18 mg/dL (9-16); Calcium 8.4 mg/dL (8.4-10.2); Carbon Dioxide 30 mmol/L (22-29); Chloride 105 mmol/L (96-108); Creatinine Clr Calc Pharmacy 45.4; Estimated Glomerular Filt Rate > 60; Glucose Random 103 mg/dL (60-115); Magnesium 1.9 mg/dL (1.6-2.6); Potassium 3.9 mmol/L (3.3-5.1); Sodium 142 mmol/L (135-145)
--- NOTE | 2024-11-23 11:50 | MHC.CLN ---
PT IS MODERATELY MALNOURISHED PT WITH MILDLY DEPLETED SUBCUTANEOUS FAT AND MUSCLE MASS NO PREVIOUS WT HX. PT WITH LEFT AKA AND IBW ADJUSTED TO REFLECT 88.2#+/-10%; PT IS 105% IBW RANGE INDICATES ADEQUATE WT FOR HT REGULAR DIET IN PLACE RECOMMEND ADDING ENSURE BID TO PROVIDE 700KCALS, 40G PROTEIN MONITOR PO INTAKE AND ENCOURAGE SUPPLEMENT SEE ALSO FULL CLINICAL NUTRITION ASSESSMENT
--- NOTE | 2024-11-23 13:28 | HO.PM.IMPN ---
Subjective Subjective Date of Service: 11/23/24 Interval History: seen and evaluated this morning feels little better still on O2 supplement no other events Review of Systems Review of Systems: Yes all other systems are reviewed and are negative Physical Exam Vital Signs: Vital Signs: Last Vital Signs Temp 99.0 F 11/23/24 11:34 Pulse 78 11/23/24 11:34 Resp 20 11/23/24 11:34 BP 91/51 L 11/23/24 11:34 Pulse Ox 94 11/23/24 11:34 O2 Del Method Nasal Cannula 11/23/24 11:34 O2 Flow Rate 2 11/23/24 11:34 BMI result Body Mass Index 17.6 Const: Other: Constitutional : Awake, interactive, not in distress Neck : Normal inspection, Supple Cardiovascular : RRR, no JVP, no lower extremity edema Respiratory : good bilateral air entry, basal fine crackles, expiratory wheezes Gastrointestinal: soft, lax, Normal bowel sounds, Non tender Skin : Warm, Dry Extremities: Left leg AKA Neurological : Alert & oriented x3, No focal deficit Objective Data Active Medications Acetaminophen (Acetaminophen 325 Mg Tablet) 650 mg PO Q6H PRN PRN Reason: Pain, Mild 1-3,fever,headache Albuterol/Ipratropium (Albuterol/Iprat 2.5/0.5mg 3 Ml Ampul.Neb) 3 ml INHALE RQ4H WHILE AWAKE [facility] Last Admin: 11/23/24 11:13 Dose: 3 ml Documented By: GOLD Aspirin (Aspirin Enteric Coated 81 Mg Tablet.) 81 mg PO DAILY [facility] Last Admin: 11/23/24 10:40 Dose: 81 mg Documented By: FLACO Atorvastatin Calcium (Atorvastatin Calcium 40 Mg Tablet) 40 mg PO BEDTIME [facility] Last Admin: 11/22/24 21:06 Dose: 40 mg Documented By: ALPESH Calcium Carbonate (Calcium Carbonate 750 Mg Tab.Chew) 750 mg PO Q4H PRN PRN Reason: Heartburn Enoxaparin Sodium (Enoxaparin Sodium 40 Mg/0.4 Ml Syringe) 40 mg SUBCUT Q24H [facility] Last Admin: 11/23/24 10:42 Dose: 40 mg Documented By: FLACO Magnesium Hydroxide (Milk Of Magnesia 30 Ml Oral.Susp) 30 ml PO DAILY PRN PRN Reason: Constipation Melatonin (Melatonin 3 Mg Tablet) 6 mg PO BEDTIME PRN PRN Reason: Insomnia Last Admin: 11/22/24 21:10 Dose: 6 mg Documented By: ALPESH Methylprednisolone Sodium Succinate (Methylprednisolone Sod Succ 40 Mg/Ml Vial) 40 mg IVPUSH Q12H [facility] Last Admin: 11/23/24 10:41 Dose: 40 mg Documented By: FLACO Quetiapine Fumarate (Quetiapine Fumarate 50 Mg Tablet) 50 mg PO BEDTIME [facility] Last Admin: 11/22/24 21:06 Dose: 50 mg Documented By: ALPESH Sodium Chloride (0.9 % Sodium Chloride Flush 3 Ml Syringe) 3 ml IVFLUSH QSHIFT [facility] Last Admin: 11/23/24 10:41 Dose: 3 ml Documented By: FLACO Labs 11/23/24 11:14 11/23/24 11:14 Labs: Laboratory Results - last 24 hr 11/22/24 11/22/24 11/23/24 14:10 14:11 06:30 MCV 98.4 H MCH 31.7 MCHC 32.3 RDW 14.1 Plt Count 203 MPV 10.5 Immature Gran % (Auto) 0.4 Neut % (Auto) 74.5 H Lymph % (Auto) 11.1 L [place] % (Auto) 10.5 Eos % (Auto) 2.7 Baso % (Auto) 0.8 Lymph # (Auto) 0.5 L [place] # (Auto) 0.5 Eos # (Auto) 0.1 Baso # (Auto) 0.0 Abs Immat Gran (auto) 0.02 Absolute Neuts (auto) 3.5 Absolute Nucleated RBC 0.000 Nucleated RBC % (auto) 0.0 VBG pH 7.39 VBG pCO2 53 VBG pO2 33 VBG HCO3 33 H VBG O2 Saturation 45.0 VBG Base Excess 6.7 Anion Gap 15 Estim Creat Clear Calc 43.5 Estimated GFR > 60 Random Glucose 69 Calcium 8.7 Magnesium 2.0 Total Bilirubin 0.4 AST 34 H ALT 20 Alkaline Phosphatase 73 Troponin I High Sens 5.5 C-Reactive Protein 1.70 H B-Natriuretic Peptide 755 H Total Protein 7.4 Albumin 3.7 Respiratory Panel [place] See Note Adenovirus (Rapid PCR) Not Detected B.pert (TEM-PCR) Not Detected B.parapertussis DNA PCR Not Detected C. pneumoniae DNA (PCR) Not Detected Coronavirus OC43 (PCR) Not Detected Coronavirus HKU1 (PCR) Not Detected Coronavirus 229E (PCR) Not Detected Coronavirus NL63 (PCR) Not Detected Human Metapneumovir PCR Not Detected Influenza A (RT-PCR) Not Detected Influenza Type A (PCR) NEGATIVE Influenza B (RT-PCR) Not Detected Influenza Type B (PCR) NEGATIVE M. pneumoniae (PCR) Not Detected Parainfluenza 1 (PCR) Not Detected Parainfluenza 2 (PCR) Not Detected Parainfluenza 3 (PCR) Not Detected Parainfluenza 4 (PCR) Not Detected RSV (PCR) Not Detected RSV RNA Qual (PCR) NEGATIVE Entero/Rhino (PCR) Not Detected SARS-CoV-2 RNA (RT-PCR) NEGATIVE Not Detected 11/23/24 11:14 MCV 99.7 H MCH 32.5 MCHC 32.6 RDW 14.0 Plt Count 179 MPV 10.3 Immature Gran % (Auto) Neut % (Auto) Lymph % (Auto) [place] % (Auto) Eos % (Auto) Baso % (Auto) Lymph # (Auto) [place] # (Auto) Eos # (Auto) Baso # (Auto) Abs Immat Gran (auto) Absolute Neuts (auto) Absolute Nucleated RBC 0.000 Nucleated RBC % (auto) 0.0 VBG pH VBG pCO2 VBG pO2 VBG HCO3 VBG O2 Saturation VBG Base Excess Anion Gap 11 L Estim Creat Clear Calc 45.4 Estimated GFR > 60 Random Glucose 103 Calcium 8.4 Magnesium 1.9 Total Bilirubin AST ALT Alkaline Phosphatase Troponin I High Sens C-Reactive Protein B-Natriuretic Peptide Total Protein Albumin Respiratory Panel [place] Adenovirus (Rapid PCR) B.pert (TEM-PCR) B.parapertussis DNA PCR C. pneumoniae DNA (PCR) Coronavirus OC43 (PCR) Coronavirus HKU1 (PCR) Coronavirus 229E (PCR) Coronavirus NL63 (PCR) Human Metapneumovir PCR Influenza A (RT-PCR) Influenza Type A (PCR) Influenza B (RT-PCR) Influenza Type B (PCR) M. pneumoniae (PCR) Parainfluenza 1 (PCR) Parainfluenza 2 (PCR) Parainfluenza 3 (PCR) Parainfluenza 4 (PCR) RSV (PCR) RSV RNA Qual (PCR) Entero/Rhino (PCR) SARS-CoV-2 RNA (RT-PCR) Assessment and Plan (1) Acute exacerbation of chronic obstructive pulmonary disease: Status: Acute (2) COPD (chronic obstructive pulmonary disease): Status: Acute (3) Acute respiratory failure with hypoxia: Status: Acute Plan 79F PMH COPD, pvd, cad, hld, mood disorder, raynauds, s/p left AKA presented with sob Acute hypoxic respiratory failure secondary to COPD with acute decompensation and possible acute unspecified CHF pending Echo IV steroids, DuoNebs, Azithromycin for pleomorphic effect IV Lasix 1 dose in ED , follow up echocardiogram CT chest showing possible pneumonitis in RUL and emphysema bilaterally Wean oxygen as Hypotension Due to frailty not due to severe sepsis to give Midodrine and increase calorie intake ; ensure Moderate protein calorie malnourished Encourage p.o. intake Peripheral vascular disease, coronary artery disease Continue aspirin and statin DVT prophylaxis with lovenox DNR/DNI Patient with significant hypoxia requiring O2 supplement therefore expected require overnight inpatient Quality Stroke Does the patient have a stroke diagnosis?: No VTE Prior VTE?: No VTE Risk Level:: Medical - moderate - high VTE Device Contraindication: Treatment Not Indicated VTE Drug Contraindication: N/A - Med Ordered
[2024-11-23] MEDS: Azithromycin 250 MG TABLET PO (14:48)
[2024-11-23] MEDS: Midodrine HCl 2.5 MG TABLET PO ×2 (14:48→21:27)
--- NOTE | 2024-11-23 17:44 | HO.WOUND ---
Wound Consult: Initial 79yr old?female [place] [facility] [place]22[place]24 17:07 - See progress notes and H&P for detailed history.? Wound consult placed for Left ischium.? 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 She reports she does not know current treatment plan. Perianal and Sacral Etiology: MASD - IAD ??Present on Admission Wound Bed: red pink moist maceration noted tissue remnains blanchable Drainage / Odor: none Edges: ? mirrored and attached Donna wound: Intact ? No Induration, Fluctuance or Warmth noted Pain: denies Goals of Treatment: ? barrier cream and off load pressure Left Ischium Etiology: Stage 3 Pressure Injury ?Present on Admission Wound Bed: unable to visualize Drainage / Odor: none noted at this time - macerated edges noted Edges: ?unattached Donna wound: Intact dark pigmented tissue - remains blanchable ? No Induration, Fluctuance or Warmth noted Pain: denies Goals of Treatment: ? Durafiber AG packing and foam dressing applied Right Ischium Etiology: stage 2 Pressure Injury Present on Admission Wound Bed: red pink moist tissue Drainage / Odor: none Edges: ? attached Donna wound: Intact ?there is a calcium deposit per patient statement next to open wound - No Induration, Fluctuance or Warmth noted Pain: tenderness reported Goals of Treatment: ? Foam dressing applied Recommendations: 1. Turn and Reposition every 2 hours and as needed for patient comfort.? Use pillows or wedges to support off loading positions. 2. Off Load all bony prominences with use of pillows and heel boots if needed.? Apply Preventative foams where needed. ? 3. Monitor for incontinence and moisture control, use barrier creams when needed for prevention and treatment. 4. Provide adequate and supplemental nutrition.? 5. Order low air loss mattress. 6. When applicable maintain blood glucose levels per Providers order. 7. Left Ischium - Off load pressure Q2hr turns and use of pillows. Cleanse and irrigate with NS, pat dry. Apply skin prep. Lightly pack wound bed with Durafiber AG be sure to leave a wick for easy removal. Cover with foam dressing. Change every other day and PRN. 8. Right Ischium and Sacrum - Off load pressure Q2hr turns and use of pillows. Apply skin prep. Cover with foam dressing. Change every 3 days and PRN. 9. Perianal and Buttock - Cleanse with ph balanced wipes, pat dry. Apply barrier cream twice daily and PRN after episodes of incontinence. Re-consult wound care Nurse for wound deterioration or wound changes.
[2024-11-23] MEDS: QUEtiapine Fumarate 50 MG TABLET PO (21:28)
[2024-11-23] MEDS: Atorvastatin Calcium 40 MG TABLET PO (21:28)
[2024-11-24] VITALS (13 sets, daily range): BP systolic 94–124; BP diastolic 44–61; PULSE 62–98; RESP 14–18; TEMP 35.9–36.9; O2SAT 75–98
[2024-11-24] MEDS: Albuterol/Iprat 2.5/0.5MG 3 ML AMPUL.NEB INHALE ×4 (08:05→20:17)
[2024-11-24] MEDS: methylPREDNISolone Sod Succ 40 MG/ML VIAL IVPUSH ×2 (08:36→20:23)
[2024-11-24] MEDS: Midodrine HCl 2.5 MG TABLET PO ×3 (08:36→20:27)
[2024-11-24] MEDS: 0.9 % Sodium Chloride Flush 3 ML SYRINGE IVFLUSH ×3 (08:36→20:24)
[2024-11-24] MEDS: Aspirin Enteric Coated 81 MG TABLET.DR PO (08:36)
[2024-11-24] MEDS: Enoxaparin Sodium 40 MG/0.4 ML SYRINGE SUBCUT (08:37)
--- NOTE | 2024-11-24 11:10 | P.PNIM_ITS ---
Subjective Subjective Date of Service: 11/24/24 Interval History: seen and evaluated this morning feels little better dropped to 70s on RA, recovered on 3L O2 no other events Review of Systems Review of Systems: Yes all other systems are reviewed and are negative Physical Exam 2 Vital Signs: Vital Signs: Last Vital Signs Temp 96.7 F L 11/24/24 07:48 Pulse 62 11/24/24 08:08 Resp 14 11/24/24 08:08 BP 117/53 L 11/24/24 07:48 Pulse Ox 92 11/24/24 10:00 O2 Del Method Nasal Cannula 11/24/24 10:00 O2 Flow Rate 3 11/24/24 10:00 BMI result Body Mass Index 17.6 Const: Other: Constitutional : Awake, interactive, not in distress Neck : Normal inspection, Supple Cardiovascular : RRR, no JVP, no lower extremity edema Respiratory : good bilateral air entry, basal fine crackles, expiratory wheezes Gastrointestinal: soft, lax, Normal bowel sounds, Non tender Skin : Warm, Dry Extremities: Left leg AKA Neurological : Alert & oriented x3, No focal deficit Objective Data Active Medications Acetaminophen (Acetaminophen 325 Mg Tablet) 650 mg PO Q6H PRN PRN Reason: Pain, Mild 1-3,fever,headache Albuterol/Ipratropium (Albuterol/Iprat 2.5/0.5mg 3 Ml Ampul.Neb) 3 ml INHALE RQ4H WHILE AWAKE [facility] Last Admin: 11/24/24 08:05 Dose: 3 ml Documented By: GOLD Aspirin (Aspirin Enteric Coated 81 Mg Tablet.) 81 mg PO DAILY [facility] Last Admin: 11/24/24 08:36 Dose: 81 mg Documented By: [facility] Atorvastatin Calcium (Atorvastatin Calcium 40 Mg Tablet) 40 mg PO BEDTIME [facility] Last Admin: 11/23/24 21:28 Dose: 40 mg Documented By: ALPESH Azithromycin (Azithromycin 250 Mg Tablet) 250 mg PO Q24H [facility] Last Admin: 11/23/24 14:48 Dose: 250 mg Documented By: ISAAC Calcium Carbonate (Calcium Carbonate 750 Mg Tab.Chew) 750 mg PO Q4H PRN PRN Reason: Heartburn Enoxaparin Sodium (Enoxaparin Sodium 40 Mg/0.4 Ml Syringe) 40 mg SUBCUT Q24H [facility] Last Admin: 11/24/24 08:37 Dose: 40 mg Documented By: [facility] Magnesium Hydroxide (Milk Of Magnesia 30 Ml Oral.Susp) 30 ml PO DAILY PRN PRN Reason: Constipation Melatonin (Melatonin 3 Mg Tablet) 6 mg PO BEDTIME PRN PRN Reason: Insomnia Last Admin: 11/22/24 21:10 Dose: 6 mg Documented By: ALPESH Methylprednisolone Sodium Succinate (Methylprednisolone Sod Succ 40 Mg/Ml Vial) 40 mg IVPUSH Q12H [facility] Last Admin: 11/24/24 08:36 Dose: 40 mg Documented By: [facility] Midodrine (Midodrine Hcl 2.5 Mg Tablet) 2.5 mg PO TID [facility] Last Admin: 11/24/24 08:36 Dose: 2.5 mg Documented By: [facility] Quetiapine Fumarate (Quetiapine Fumarate 50 Mg Tablet) 50 mg PO BEDTIME [facility] Last Admin: 11/23/24 21:28 Dose: 50 mg Documented By: ALPESH Sodium Chloride (0.9 % Sodium Chloride Flush 3 Ml Syringe) 3 ml IVFLUSH QSHIFT [facility] Last Admin: 11/24/24 08:36 Dose: 3 ml Documented By: [facility] Labs 11/23/24 11:14 11/23/24 11:14 Labs: Laboratory Results - last 24 hr 11/23/24 11:14 MCV 99.7 H MCH 32.5 MCHC 32.6 RDW 14.0 Plt Count 179 MPV 10.3 Absolute Nucleated RBC 0.000 Nucleated RBC % (auto) 0.0 Anion Gap 11 L Estim Creat Clear Calc 45.4 Estimated GFR > 60 Random Glucose 103 Calcium 8.4 Magnesium 1.9 Assessment and Plan (1) Acute respiratory failure with hypoxia: Status: Acute (2) COPD (chronic obstructive pulmonary disease): Status: Acute (3) Acute exacerbation of chronic obstructive pulmonary disease: Status: Acute Plan 79F PMH COPD, pvd, cad, hld, mood disorder, raynauds, s/p left AKA presented with sob Acute hypoxic respiratory failure secondary to COPD with acute decompensation and possible acute diastolic CHF CT chest showing possible pneumonitis in RUL and emphysema bilaterally Echo showing EF 55-60% with filling pressures continue IV steroids, DuoNebs, Azithromycin for pleomorphic effect IV Lasix 20 mg add incentive spirometry Wean oxygen as Hypotension Due to frailty not due to severe sepsis to give Midodrine and increase calorie intake ; ensure Moderate protein calorie malnourished Encourage p.o. intake Peripheral vascular disease, coronary artery disease Continue aspirin and statin DVT prophylaxis with lovenox DNR/DNI Patient with significant hypoxia requiring O2 supplement therefore expected require overnight inpatient Quality Stroke Does the patient have a stroke diagnosis?: No VTE Prior VTE?: No VTE Risk Level:: Medical - moderate - high VTE Device Contraindication: Treatment Not Indicated VTE Drug Contraindication: N/A - Med Ordered
[2024-11-24] MEDS: Furosemide 20 MG/2 ML VIAL IVPUSH (12:01)
[2024-11-24] MEDS: Azithromycin 250 MG TABLET PO (16:48)
[2024-11-24] MEDS: QUEtiapine Fumarate 50 MG TABLET PO (20:27)
[2024-11-24] MEDS: Atorvastatin Calcium 40 MG TABLET PO (20:27)
[2024-11-25] VITALS (9 sets, daily range): BP systolic 92–119; BP diastolic 49–64; PULSE 65–124; RESP 18–20; TEMP 36.5–37.1; O2SAT 86–100
[2024-11-25 07:27] LABS: Blood Urea Nitrogen 27 mg/dL (9-16); Estimated Glomerular Filt Rate > 60; Glucose Random 108 mg/dL (60-115)
[2024-11-25 07:28] LABS: B Type Natriuretic Peptide 391 pg/mL (<100)
[2024-11-25 07:36] LABS: Anion Gap 12 (12-20); Calcium 9.1 mg/dL (8.4-10.2); Carbon Dioxide 29 mmol/L (22-29); Chloride 101 mmol/L (96-108); Potassium 4.8 mmol/L (3.3-5.1); Sodium 137 mmol/L (135-145)
[2024-11-25] MEDS: Albuterol/Iprat 2.5/0.5MG 3 ML AMPUL.NEB INHALE ×2 (07:45→11:32)
[2024-11-25] MEDS: Midodrine HCl 2.5 MG TABLET PO (09:45)
[2024-11-25] MEDS: Enoxaparin Sodium 40 MG/0.4 ML SYRINGE SUBCUT (09:45)
[2024-11-25] MEDS: methylPREDNISolone Sod Succ 40 MG/ML VIAL IVPUSH (09:46)
[2024-11-25] MEDS: Aspirin Enteric Coated 81 MG TABLET.DR PO (09:46)
[2024-11-25] MEDS: 0.9 % Sodium Chloride Flush 3 ML SYRINGE IVFLUSH (09:46)
--- NOTE | 2024-11-25 12:32 | MHC.CLN ---
F/U PT IS MODERATELY MALNOURISHED SEE FULL CLINICAL NUTRITION ASSESSMENT DATED 11/23/24 PT WITH INCREASED NUTRITION RISK R/T PRESSURE INJURY PO INTAKE 50-100% REGULAR DIET PT RECEIVING ENSURE BID TO PROVIDE 700KCALS, 40G PROTEIN MONITOR PO INTAKE AND ENCOURAGE SUPPLEMENT
--- NOTE | 2024-11-25 12:44 | PM.DS ---
DS: Providers Provider Date of Service: 11/25/24 Date of admission: 11/22/24 17:07 Date of discharge: 11/25/24 Primary care physician: Shonda Alvarado NP Consults: 11/23/24 14:51 Consult to Wound Care Routine Reason for consultation: non healing wound to L buttocks DS: Diagnosis Discharge Diagnosis (1) Acute respiratory failure with hypoxia: Status: Acute (2) COPD (chronic obstructive pulmonary disease): Status: Acute (3) Acute exacerbation of chronic obstructive pulmonary disease: Status: Acute DS: Summary Hospital Course Hospital Course: Admission note HPI 79F PMH COPD, pvd, cad, hld, mood disorder, raynauds, s/p left AKA presented with sob. Patient reports about 2 days of sob, weakness, difficulty with mild exertion. denies fever, chills, chest pain or sick contacts. noted to be wheezing and crackly so brought to ED. in ED was hypoxic to 79% on room air required 4L to maintain 90%, viral swab negative, bnp elevate to 700, cxr with acute on chronic airspace disease. Hospital course The patient was admitted for treatment of Acute hypoxic respiratory failure secondary to COPD with acute decompensation and possible acute diastolic CHF as CT chest showing possible pneumonitis in RUL and emphysema bilaterally and Echo showing EF 55-60% with filling pressures. treated with IV steroids, DuoNebs along with Azithromycin for pleomorphic effect and IV Lasix 20 mg daily with fair response as she was weaned down on O2 supplement but could not be taken off completely requiring Home O2 of 4L with ambulation and 2L at rest. To continue with incentive spirometry and O2 supplement on discharge. To finish 3 more days of Azithromycin, Prednisone and Duonebs as will provide a nebulizer machine. Will send her with Fluticasone inhaler and PRN Albuterol inhaler as well. She was noted to have persistent Hypotension which seems to be due to frailty and low body weight. advised to increase protein intake and physical therapy as tolerated PT evaluated her and recommended home therapy. [facility]NA to follow with her at home. Discharge plan Continue Azithromycin for 3 more days Continue Prednisone as prescribed Wean Oxygen down as tolerated; goal to keep O2 level 88-94%. Use Duoneb every 4-6 hours for the next 3 days then as needed Start Inhalers (Fluticasone daily) and Albuterol as needed Follow with PCP in 1-2 weeks To do physical therapy at home Time Attestation Discharge Coordination Time (in mins): 47 Quality: Safe Use of Opioids Does Pt have an Active Cancer Diagnosis on the Problem List?: No Quality: Stroke Does the patient have a stroke diagnosis?: No Physical Exam Vital Signs: Vital Signs: Last Vital Signs Temp 98.7 F 11/25/24 11:39 Pulse 78 11/25/24 11:39 Resp 20 11/25/24 11:39 BP 113/57 L 11/25/24 11:39 Pulse Ox 100 11/25/24 11:39 O2 Del Method Nasal Cannula 11/25/24 07:32 O2 Flow Rate 3 11/25/24 07:32 BMI result Body Mass Index 17.6 Const: Other: Constitutional : Awake, interactive, not in distress Neck : Normal inspection, Supple Cardiovascular : RRR, no JVP, no lower extremity edema Respiratory : good bilateral air entry, no crackles, no wheezes, on 2L O@ Gastrointestinal: soft, lax, Normal bowel sounds, Non tender Skin : Warm, Dry Extremities: Left leg AKA with chronic wound, no signs of infx Neurological : Alert & oriented x3, No focal deficit DS: Data Data Completed and Pending Labs on day of discharge: Laboratory Results - last 24 hr 11/25/24 06:28 Sodium 137 Potassium 4.8 D Chloride 101 Carbon Dioxide 29 Anion Gap 12 BUN 27 H Creatinine 0.64 Estim Creat Clear Calc 49.0 Estimated GFR > 60 Random Glucose 108 Calcium 9.1 D B-Natriuretic Peptide 391 H Imaging Chest x-ray: Radiologist's impression: ITS Impressions Chest X-Ray 11/22/24 13:59 IMPRESSION: Concerning acute on chronic airspace disease with questionable pleural thickening versus small pleural effusions. Electronically signed by: Baldemar Hernandez MD 11/22/2024 02:28 PM EST Discharge Plan Discharge Anticipated Discharge Date/Time: 11/25/24 12:37 Patient Disposition: Home Health Service Discharge Diagnosis: COPD exacerbation Referrals: [facility] [Outside] - 1 Week Shonda Alvarado NP [Primary Care Provider] - 1 Day ([facility]) Discharge Medications: New ipratropium-albuterol 0.5 mg-3 mg(2.5 mg base)/3 mL Solution For Nebulization 3 ml inhalation RQ4H WHILE AWAKE PRN (Reason: shortness of breath or wheezing) Qty: 90 0RF azithromycin 250 mg Tablet 250 mg PO Q24H Qty: 3 0RF prednisone 20 mg tablet 40 mg PO DAILY Qty: 10 0RF fluticasone furoate 100 mcg/actuation blister with device 1 inh inhalation DAILY Qty: 30 2RF albuterol sulfate 90 mcg/actuation HFA aerosol inhaler 2 puff inhalation Q6H PRN (Reason: shortness of breath or wheezing) Qty: 6.7 1RF Continued atorvastatin 40 mg tablet 40 mg PO DAILY quetiapine 50 mg tablet 50 mg PO BEDTIME Discharge Orders: Discharge Order (Routine); Ordered 11/25/24 Ordered By: Rosalina Velasco Diet: Advance to usual diet Activity on Discharge: As tolerated Stand Alone Forms: Patient Portal Discharge page Print Language: Somali Care Plan Goals: Continue Azithromycin for 3 more days Continue Prednisone as prescribed Wean Oxygen down as tolerated; goal to keep O2 level 88-94%. Use Duoneb every 4-6 hours for the next 3 days then as needed Start Inhalers (Fluticasone daily) and Albuterol as needed increase protein intake and physical therapy as tolerated Follow with PCP in 1-2 weeks To do physical therapy at home Health Concerns: COPD with exacerbation Plan of Treatment: Inhalers, nebulizers, Oxygen supplement Assessment: as above Discharge Date/Time: 11/25/24 15:10
--- NOTE | 2024-11-25 13:08 | MHC.CM.PN ---
Pt is medically cleared for discharge home with resumption of [facility] services, and new home O2. Pts family will transport her home today.
== END 2024-11-25 15:10 | disposition home health service (06) | DRG 190 ==
LOC: HO.ED 16:56 → HO.EDOVER 17:19 → HO.IMC 17:38
PROVIDERS: Physician Assistant Medical; Admitting Provider Internal Medicine; Emergency Provider Emergency Medicine; PCP Nurse Practitioner Family; Visit Provider Student in an Organized Health Care Education/Training Program
DX: J43.9 Emphysema, unspecified (principal); I50.31 Acute diastolic (congestive) heart failure; J96.01 Acute respiratory failure with hypoxia; E44.0 Moderate protein-calorie malnutrition; Z68.1 Body mass index [BMI] 19.9 or less, adult; Z66 Do not resuscitate; J98.4 Other disorders of lung; I95.9 Hypotension, unspecified; I25.10 Atherosclerotic heart disease of native coronary artery without angina pectoris; I73.00 Raynaud's syndrome without gangrene; Z20.822 Contact with and (suspected) exposure to COVID-19; Z87.891 Personal history of nicotine dependence; Z89.612 Acquired absence of left leg above knee; Z79.51 Long term (current) use of inhaled steroids; Z79.899 Other long term (current) drug therapy
CPT/HCPCS: 0241U; 36415; 71045; 71250; 80048; 80053; 82803; 83735; 83880; 84484; 85025; 85027; 86140; 87633; 93005; 93306; 94640; 97116; 97161; 99285; J0456; J1650; J1940; J2060; J2919

== ENCOUNTER → 2024-11-22 13:59 | Outpatient (BNV) | payer SELFPAY | PROVIDERS: Emergency Provider Emergency Medicine; PCP Nurse Practitioner Family; Visit Provider Radiology Diagnostic Radiology | DX: R06.00 Dyspnea, unspecified (principal); R06.02 Shortness of breath | CPT/HCPCS: 71045; 71250 ==

== ENCOUNTER 2024-11-22 17:07 | Outpatient (BNV) | payer MEDICARE, SELFPAY | END 2024-11-23 07:00 | PROVIDERS: Admitting Provider Internal Medicine; Emergency Provider Emergency Medicine; PCP Nurse Practitioner Family; Visit Provider Internal Medicine Cardiovascular Disease | DX: I35.8 Other nonrheumatic aortic valve disorders (principal); I36.1 Nonrheumatic tricuspid (valve) insufficiency; I27.20 Pulmonary hypertension, unspecified | CPT/HCPCS: 93306 ==

== ENCOUNTER → 2024-11-22 17:07 | Outpatient (BNV) | payer MEDICARE, SELFPAY | PROVIDERS: Admitting Provider Internal Medicine; Emergency Provider Emergency Medicine; PCP Nurse Practitioner Family; Visit Provider Internal Medicine | DX: J44.9 Chronic obstructive pulmonary disease, unspecified (principal) | CPT/HCPCS: 99223; 99232; 99233; 99239 ==